=== PATIENT | female | born 1970 | race Caucasian/White ===

== ENCOUNTER 2022-02-20 07:40 | Day surgery (SDC) | payer MEDICARE ==
[2022-02-20] MEDS ORDERED: LIDOCAINE HCL 2% 100 MG/5 ML IJ ONE (07:41)
[2022-02-20] MEDS ORDERED: DIPRIVAN 200 MG/20 ML IV ONE (09:29)
[2022-02-20] MEDS ORDERED: Lactated Ringers 1,000 ML IV ONE (10:02)
--- NOTE | 2022-02-20 11:39 | XRAY ---
Indication: Bilateral L4-S1 MBB. Intraoperative fluoroscopy provided for 9 seconds. Single digital spot image submitted for interpretation demonstrates posterior needle tips projecting over the expected left and right L4-S1 nerve roots. Correlate with intraoperative findings/report.
--- NOTE | 2022-02-20 12:32 | XRAY ---
9 seconds fluoroscopy was used in surgery for a bilateral L4-S1 MBB.
== END 2022-02-20 10:10 | disposition home or self-care (01) ==
LOC: SDC-PAIN 07:40
PROVIDERS: ATTEND Psychiatry & Neurology Pain Medicine
DX: M47.816 Spondylosis without myelopathy or radiculopathy, lumbar region (principal); Z79.899 Other long term (current) drug therapy
CPT/HCPCS: 64493; 64494; 72020; 77002; 82947; J2704